=== PATIENT | male | born 1995 | race Caucasian/White ===

== ENCOUNTER 2022-10-02 19:23 | Emergency (ER) | payer MEDICAID, SELFPAY ==
[2022-10-02] VITALS (21 sets, daily range): BP systolic 107–148; BP diastolic 58–94; PULSE 88–144; RESP 9–24; TEMP 36.3; O2SAT 93–99; BMI 22.8
--- NOTE | 2022-10-02 19:50 | ECG_ITS ---
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
--- NOTE | 2022-10-02 19:50 | ED_ITS ---
HPI - General Adult General Chief complaint: Anxiety Stated complaint: Panic Attack Time Seen by Provider: 10/02/22 19:37 Source: patient Mode of arrival: walk-in History of Present Illness HPI narrative: This 27-year-old male to emergency Department for anxiety and restlessness after using methamphetamine and fentanyl actually 3 hours ago. He states he feels terrible. He has used these drugs in the past. He denies that he injects them intravenously but states he was snorting them and smoking them. Upon arrival he is very anxious, moving all over, cannnot calm down and stating that he feels terrible. He is not vomiting. He denies any chest pain or shortness of breath. Related Data Allergies Allergy/AdvReac Type Severity Reaction Status Date / Time No Known Drug Allergies Allergy Verified 10/02/22 19:42 Review of Systems ROS Status of ROS unobtainable due to medical condition (under the influence of methamphetamine and fentanyl) PFSH PFSH Social History Smoking status: Current every day smoker Exam Narrative Exam Narrative: Nurses note and vital signs reviewed and patient is not hypoxic. General: The patient appears Anxious with psychomotor agitation and nonstop movement of his lower extremities, no respiratory distress, GCS 15. Skin: Warm, dry, no pallor noted. There is no rash noted. Head: Normocephalic, atraumatic Eye: Conjunctiva are injected, patient is tearful, no scleral icterus noted Ears, Nose, Mouth, and Throat: oral mucosa is moist. Nares patent. Mouth without vesicles. Ear canals patent. Tm's without Erythema Cardiovascular: Regular Rate and Rhythm, tachycardia with pulse in the 130- 140s Respiratory: Patient is in no distress, no accessory muscle use, lungs are clear to auscultation, no wheezing, rales or rhonchi Back: non-tender, no CVA tenderness bilaterally to percussion. GI: Normal bowel sounds, no tenderness to palpation, no masses appreciated. No rebound, guarding, or rigidity noted. Musculoskeletal: The patient has no evidence of calf tenderness, no pitting edema, symmetrical pulses noted bilaterally Neurological: A&O x4, normal speech Psychiatric: agitated, anxious, tearful Constitutional Vital Signs, click to edit/add: Last Vital Signs Temp 97.3 F L 10/02/22 19:38 Pulse 87 10/03/22 05:30 Resp 14 10/03/22 05:30 BP 118/78 10/03/22 05:30 Pulse Ox 97 10/03/22 05:30 O2 Del Method Room Air 10/02/22 19:38 Course Vital Signs Vital signs: Vital Signs Temperature 97.3 F L 10/02/22 19:38 Pulse Rate 144 H 10/02/22 19:38 Respiratory Rate 22 10/02/22 19:38 Blood Pressure 134/87 H 10/02/22 19:38 Pulse Oximetry 94 L 10/02/22 19:38 Oxygen Delivery Method Room Air 10/02/22 19:38 Temperature 97.3 F L 10/02/22 19:38 Pulse Rate 87 10/03/22 05:30 Respiratory Rate 14 10/03/22 05:30 Blood Pressure 118/78 10/03/22 05:30 Pulse Oximetry 97 10/03/22 05:30 Oxygen Delivery Method Room Air 10/02/22 19:38 Medical Decision Making MDM Narrative Medical decision making narrative: 27-year-old male with a history of substance abuse who has been in and out of rehab and sober living environment is presents for evaluation after he intentionally snorted and smoked methamphetamine and fentanyl. He has been on Suboxone in the past. He presents stating that he is scared and feels terrible. He allegedly took the medications approximately 3 hoours prior to arrival. I had a lengthy discussion with his mother who states that she thinks that he is relapsing because he is currently staying with his father who is dying of cancer. She wishes that when he gets discharged he can be released with her. She did speak to his boss who is also his uncle and he had a normal day at work. His uncle dropped him off at the [facility] [employer] to get an ID. Allegedly somebody must have picked him up from the [facility] and gave him the drugs that he took. Upon arrival he was markedly tachycardic with pulse 130s. EKG was sinus tachycardia at 133 beats a minute. An IV was placed and he was medicated with IV fluids and 2 mg of IV Ativan. This relieved his agitation and he was able to rest and sleep. He has normal CBC with differential and normal comprehensive metabolic profile. 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 CT scan of the brain was performed due to his tachycardia followed by deep sedation and is negative for acute findings. The patient's mother requested to go home and be called to come pick him up when he is awake and stable for discharge. The patient was monitored overnight in room 6. He is not have any episodes of desaturation, tachycardia or hypotension. He is now easily arousable and is drinking fluids and having a light snack. His mother called and he will be discharged home when she arrives. Lab Data Labs: Lab Results 10/02/22 Range/Units 19:31 WBC 9.5 (4.0-11.0) 10^3/uL RBC 4.68 L (4.70-6.10) 10^6/uL Hgb 13.7 L (14.0-18.0) g/dL Hct 40.3 L (42.0-54.0) % MCV 86.1 (80.0-94.0) fL MCH 29.3 (25.9-34.0) pg MCHC 34.0 (29.9-35.2) g/dL RDW 12.0 (11.0-15.0) % Plt Count 430 (150-450) 10^3/uL MPV 9.0 L (9.5-13.5) fL Neut % (Auto) 55.9 (43.0-75.0) % Lymph % (Auto) 33.6 (20.5-60.0) % [place] % (Auto) 6.8 (1.7-12.0) % Eos % (Auto) 2.8 (0.9-7.0) % Baso % (Auto) 0.7 (0.2-2.0) % Neut # (Auto) 5.3 (1.4-6.5) 10^3/uL Lymph # (Auto) 3.2 (1.2-3.8) 10^3/uL [place] # (Auto) 0.6 (0.3-0.8) 10^3/uL Eos # (Auto) 0.3 (0.0-0.7) 10^3/uL Baso # (Auto) 0.1 (0.0-0.1) 10^3/uL Abs Immat Gran (auto) 0.02 (0.00-0.03) 10^3/uL Imm/Tot Granulo (auto) 0.2 (0.0-0.5) % Sodium 138 (136-145) mmol/L Potassium 3.8 (3.5-5.1) mmol/L Chloride 102 (98-107) mmol/L Carbon Dioxide 27.0 (21.0-32.0) mmol/L Anion Gap 12.8 BUN 13.0 (7.0-18.0) mg/dL Creatinine 0.92 (0.70-1.30) mg/dL Est GFR ( Amer) >60 (>=60) Est GFR (Non-Af Amer) >60 (>=60) BUN/Creatinine Ratio 14.1 Glucose 131 H (74-106) mg/dL Calcium 8.9 (8.5-10.1) mg/dL Total Bilirubin 0.1 L (0.2-1.0) mg/dL AST 24 (15-37) U/L ALT 37 (16-63) U/L Alkaline Phosphatase 110 (46-116) U/L Total Protein 7.5 (6.4-8.2) g/dL Albumin 3.7 (3.4-5.0) g/dL Globulin 3.8 g/dL Albumin/Globulin Ratio 1.0 ECG Data Attestation: I personally reviewed and interpreted this ECG as follows: (Sinus tachycardia at 132 beats for minute, right axis deviation, nonspecific ST changes, no acute ST segment elevation or T-wave inversion) Discharge Plan Discharge Chief Complaint: Anxiety Clinical Impression: Active substance abuse Patient Disposition: Home, Self-Care Time of Disposition Decision: 06:03 Condition: Good Instructions: Polysubstance Use Disorder (ED) Stand Alone Forms: Portal Instructions Referrals: Corby Tolentino MD [Primary Care Provider] - 1 week
[2022-10-02] MEDS: 0.9 % SODIUM CHLORIDE 1,000 ML 999 ML IV (19:56)
[2022-10-02] MEDS: LORAZEPAM 2 MG/ML 1 ML VIAL IV (19:56)
[2022-10-02] MEDS: ONDANSETRON PF 4 MG/2 ML VIAL IV (19:57)
[2022-10-02 20:03] LABS: Basophils Absolute Auto 0.1 10^3/uL (0.0-0.1); Basophils Percent Auto 0.7 % (0.2-2.0); Eosinophils Absolute Auto 0.3 10^3/uL (0.0-0.7); Eosinophils Percent Auto 2.8 % (0.9-7.0); Hematocrit 40.3 % (42.0-54.0); Hemoglobin 13.7 g/dL (14.0-18.0); Immature Granulocytes Abs Auto 0.02 10^3/uL (0.00-0.03); Immature Granulocytes Pct Auto 0.2 % (0.0-0.5); Lymphocytes Absolute Auto 3.2 10^3/uL (1.2-3.8); Lymphocytes Percent Auto 33.6 % (20.5-60.0); Mean Corpuscular Hemoglobin 29.3 pg (25.9-34.0); Mean Corpuscular Volume 86.1 fL (80.0-94.0); Monocytes Absolute Auto 0.6 10^3/uL (0.3-0.8); Monocytes Percent Auto 6.8 % (1.7-12.0); Neutrophils Absolute Auto 5.3 10^3/uL (1.4-6.5); Neutrophils Percent Auto 55.9 % (43.0-75.0); Platelet Count 430 10^3/uL (150-450); Red Blood Count 4.68 10^6/uL (4.70-6.10); White Blood Count 9.5 10^3/uL (4.0-11.0)
[2022-10-02 20:20] LABS: Alanine Aminotransferase 37 U/L (16-63); Albumin Level 3.7 g/dL (3.4-5.0); Alkaline Phosphatase 110 U/L (46-116); Anion Gap 12.8; Aspartate Amino Transferase 24 U/L (15-37); BUN Creatinine Ratio 14.1; Bilirubin Total 0.1 mg/dL (0.2-1.0); Calcium 8.9 mg/dL (8.5-10.1); Chloride 102 mmol/L (98-107); Estimated GFR (African America >60 (>=60); Estimated GFR (Non-African Ame >60 (>=60); Globulin 3.8 g/dL; Glucose 131 mg/dL (74-106); Potassium 3.8 mmol/L (3.5-5.1); Sodium 138 mmol/L (136-145); Total Protein 7.5 g/dL (6.4-8.2)
--- NOTE | 2022-10-02 23:04 | CT_ITS ---
The [address] [address] Patient Name: AMAURY CANDELARIO MRN: [id number] date: 1995 Sex: M Assigned Patient Location: ER Current Patient Location: ER Accession/Order Number: [id number] Exam Date: 10/02/2022 23:10 Report Date: 10/02/2022 23:28 At the request of: BELEN MARKER Procedure: CT head/brain wo con EXAMINATION: CT head/brain wo con, 10/02/2022 11:10 PM EDT HISTORY: AMS COMPARISON: CT head 06/14/2021. TECHNIQUE: CT scan of the head was performed without IV contrast. CT dose reduction technique was used, including Automated Exposure Control. FINDINGS: BRAIN PARENCHYMA/CSF SPACES: Ventricles are normal in size for age. There is no hemorrhage, mass effect or midline shift. There are no other significant findings. PARANASAL SINUSES: Clear. SKULL BASE AND CALVARIUM: Normal. EXTRACRANIAL SOFT TISSUES: Normal. CT/CT head/brain wo con IMPRESSION: Normal noncontrast head CT. Electronically authenticated by: JAIME MAHMOOD Date: 10/02/2022 23:28
[2022-10-03] VITALS (13 sets, daily range): BP systolic 99–124; BP diastolic 70–86; PULSE 81–98; RESP 8–17; O2SAT 96–100
== END 2022-10-03 06:38 | disposition home or self-care (01) ==
PROVIDERS: Emergency Provider Emergency Medicine; PCP Family Medicine
DX: F15.10 Other stimulant abuse, uncomplicated (principal); B37.9 Candidiasis, unspecified; F17.210 Nicotine dependence, cigarettes, uncomplicated
CPT/HCPCS: 36415; 70450; 80053; 84484; 85025; 93005; 96374; 96375; 99285

== ENCOUNTER 2022-12-06 23:39 | Emergency (ER) | payer MEDICAID, SELFPAY ==
[2022-12-06 23:43] VITALS: BP 102/60; PULSE 117; RESP 20; TEMP 36.2; O2SAT 97; BMI 23.1
--- NOTE | 2022-12-06 23:59 | PC.NURSE ---
patient states he has been trying to detox at home since saturday and is currently going through withdraw. states he last had alcohol on saturday and last used fentanyl on saturday. mother states he saw his PCP approx2 days ago and was prescribed medication but the medication does not seem to be helping enough. patient states he feels shaky, has restless legs, and is nauseous. states he just needs help getting through these symptoms. states he has been to a detox center previously but does not want to go to another center at this time, states he wants to continue trying to detox at home.
--- NOTE | 2022-12-07 00:03 | ECG_ITS ---
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
--- NOTE | 2022-12-07 00:03 | ED.GENADUL1 ---
HPI - General Adult General Chief complaint: Alcohol Stated complaint: detox day 4 Time Seen by Provider: 12/06/22 23:55 Source: patient and family (mother) History of Present Illness HPI narrative: This 27-year-old male with a history of substance abuse particularly heroin and fentanyl who has been attempting to detox at home for the past 2 days is brought to the emergency department by his mother for evaluation of restless legs, generalized malaise, nausea and diarrhea. He was seen recently by Shirley Ramírez and prescribed several medications to help him with his withdrawal symptoms. The patient states that he does occasionally drink alcohol but never typically has or than 3 beers. Upon arrival he is somnolent and difficult to examine. When I was able to stimulate him to sit up he started thrashing around with psychomotor movements of his arms and legs. He states that he cannot control his shaking. This immediately is followed by resting on the bed with no psychomotor agitation. He states that the last time he used any fentanyl was 3 days ago. He has been trying to detox at his girlfriends mothers house but went to his mother's house this evening and requested to be brought here. The mother states that he also uses methamphetamine. She thinks that he typically uses methamphetamine to the point that he cannot rest and then uses opiates to get him to sleep. He has been in detox centers before which have not seemed to help him. The mother states she thinks that they just sedate him the whole time is there and when he leaves he uses again. Related Data Home Medications Medication Instructions Recorded Confirmed dicyclomine 20 mg tablet 20 mg PO TID 12/06/22 12/06/22 pramipexole 0.5 mg tablet 0.5 mg PO DAILY 12/06/22 12/06/22 quetiapine 50 mg tablet 50 mg PO DAILY 12/06/22 12/06/22 tizanidine 4 mg tablet 4 mg PO BID PRN muscle spasticity 12/06/22 12/06/22 Allergies Allergy/AdvReac Type Severity Reaction Status Date / Time No Known Drug Allergies Allergy Verified 12/06/22 23:49 Review of Systems ROS Status of ROS 10 or more systems reviewed and unremarkable except as noted in history and below PFSH PFSH Social History Smoking status: Current every day smoker Exam Narrative Exam Narrative: Nurses note and vital signs reviewed; He is afebrile, tachycardic with a pulse of 117, blood pressure is moderately low 102/60, he is not hypoxic with pulse ox of 97 percent on room air General: Sleeping adult male lying on his right side, when stimulated he jumps up on the bed and starts shaking his legs simulating restless leg syndrome, he promptly then lays back down and is motionless Skin: Warm, dry, no pallor noted. There is no rash noted. Head: Normocephalic, atraumatic Eye: Normal conjunctiva, no drainage, EOMI. PERRL Ears, Nose, Mouth, and Throat: oral mucosa is moist. Pt is edentulous Cardiovascular: Regular Rate and Rhythm tachycardic at 117, no murmurs, rubs or gallops Respiratory: Patient is in no distress, no accessory muscle use, lungs are clear to auscultation, no wheezing, rales or rhonchi Back: non-tender, no CVA tenderness bilaterally to percussion. GI: Normal bowel sounds, no tenderness to palpation, no masses appreciated. No rebound, guarding, or rigidity noted. Musculoskeletal: Moving all extremities Neurological: A&O x4, normal speech, no focal neurologic deficits Psychiatric: somnolence followed by psychomotor agitation followed by somnolence, does not verbalize homicidal or suicidal ideation Constitutional Vital Signs, click to edit/add: Last Vital Signs Temp 97.1 F L 12/06/22 23:43 Pulse 117 H 12/06/22 23:43 Resp 16 12/07/22 02:23 BP 112/78 12/07/22 02:23 Pulse Ox 96 12/07/22 02:23 Course Vital Signs Vital signs: Vital Signs Temperature 97.1 F L 12/06/22 23:43 Pulse Rate 117 H 12/06/22 23:43 Respiratory Rate 20 12/06/22 23:43 Blood Pressure 102/60 12/06/22 23:43 Pulse Oximetry 97 12/06/22 23:43 Temperature 97.1 F L 12/06/22 23:43 Pulse Rate 117 H 12/06/22 23:43 Respiratory Rate 16 12/07/22 02:23 Blood Pressure 112/78 12/07/22 02:23 Pulse Oximetry 96 12/07/22 02:23 Medical Decision Making MDM Narrative Medical decision making narrative: This 27-year-old male is brought emergency department by his mother who is concerned about his health as he is going through opiate withdrawal. He is on several medications that were recently prescribed to help him with his withdrawal symptoms. He has been staying at his girlfriend's mother's house until today when he went to his mother's house and asked her to bring him here. He is intermittently sleeping and then having episodes of psychomotor agitation. He states that he has restless leg syndrome. He is on medications for this. He has had nausea and some diarrhea. He has not had any vomiting while in emergency department. He is not an alcohol user excessively but does occasionally drink some beers. His symptoms do not appear to be related to alcohol withdrawal. EKG done upon arrival sinus tachycardia 100 bpm with no acute changes. An IV was placed and routine labs are ordered. His labs are normal with the exception of a mildly low potassium which was replaced orally. He was medicated in the emergency department with normal saline, Zofran, 1 mg of Ativan. He is tolerating clear liquids. He was able to tolerate oral potassium replacement. On reevaluation he appeared to be feeling somewhat better but would awaken with acute agitation. His mother seems very concerned and I agreed to give him an additional dose of Ativan as well as D5 LR to clear any ketosis as he has not eaten in the past several days. He does appear to be doing better at this time and his mother is comfortable taking him home. I extended her that there is no quick fix for opiate withdrawal. He should continue the medications that he is currently on. I encouraged him to drink plenty of clear liquids. He is scheduled to get a The car easily beatl shot early next week. Lab Data Labs: Lab Results 12/07/22 Range/Units 00:12 WBC 7.8 (4.0-11.0) 10^3/uL RBC 4.22 L (4.70-6.10) 10^6/uL Hgb 12.4 L (14.0-18.0) g/dL Hct 35.9 L (42.0-54.0) % MCV 85.1 (80.0-94.0) fL MCH 29.4 (25.9-34.0) pg MCHC 34.5 (29.9-35.2) g/dL RDW 11.8 (11.0-15.0) % Plt Count 280 (150-450) 10^3/uL MPV 9.0 L (9.5-13.5) fL Neut % (Auto) 69.3 (43.0-75.0) % Lymph % (Auto) 23.8 (20.5-60.0) % [place] % (Auto) 5.7 (1.7-12.0) % Eos % (Auto) 0.8 L (0.9-7.0) % Baso % (Auto) 0.3 (0.2-2.0) % Neut # (Auto) 5.4 (1.4-6.5) 10^3/uL Lymph # (Auto) 1.9 (1.2-3.8) 10^3/uL [place] # (Auto) 0.5 (0.3-0.8) 10^3/uL Eos # (Auto) 0.1 (0.0-0.7) 10^3/uL Baso # (Auto) 0.0 (0.0-0.1) 10^3/uL Abs Immat Gran (auto) 0.01 (0.00-0.03) 10^3/uL Imm/Tot Granulo (auto) 0.1 (0.0-0.5) % Sodium 135 L (136-145) mmol/L Potassium 3.2 L (3.5-5.1) mmol/L Chloride 101 (98-107) mmol/L Carbon Dioxide 24.7 (21.0-32.0) mmol/L Anion Gap 12.5 BUN 10.0 (7.0-18.0) mg/dL Creatinine 0.76 (0.70-1.30) mg/dL Est GFR ( Amer) >60 (>=60) Est GFR (Non-Af Amer) >60 (>=60) BUN/Creatinine Ratio 13.2 Glucose 100 (74-106) mg/dL Calcium 8.5 (8.5-10.1) mg/dL Total Bilirubin 0.3 (0.2-1.0) mg/dL AST 12 L (15-37) U/L ALT 25 (16-63) U/L Alkaline Phosphatase 59 (46-116) U/L Total Protein 6.1 L (6.4-8.2) g/dL Albumin 3.2 L (3.4-5.0) g/dL Globulin 2.9 g/dL Albumin/Globulin Ratio 1.1 ECG Data Attestation: I personally reviewed and interpreted this ECG as follows: (Tennis tachycardia at 100 beats for minute, normal axis, Normal intervals,moderate right axis deviation, no acute ST segment elevation or T-wave inversion) Discharge Plan Discharge Chief Complaint: Alcohol Clinical Impression: Opiate withdrawal Patient Disposition: Home, Self-Care Time of Disposition Decision: 03:00 Condition: Fair Prescriptions / Home Meds: No Action tizanidine 4 mg tablet 4 mg PO BID PRN (Reason: muscle spasticity) quetiapine 50 mg tablet 50 mg PO DAILY Rx Instructions: 1-2 tablets at HS for insomnia pramipexole 0.5 mg tablet 0.5 mg PO DAILY Rx Instructions: 1-3 tablets at bed time for restless legs dicyclomine 20 mg tablet 20 mg PO TID Instructions: Opioid Withdrawal (ED), Narcotic Withdrawal (ED) Stand Alone Forms: Portal Instructions Referrals: Corby Tolentino MD [Primary Care Provider] - 1 week
[2022-12-07] MEDS: LORAZEPAM 2 MG/ML 1 ML VIAL 1 MG IV (00:19)
[2022-12-07] MEDS: ONDANSETRON PF 4 MG/2 ML VIAL IV (00:19)
[2022-12-07] MEDS: 0.9 % SODIUM CHLORIDE 1,000 ML 1000 ML IV (00:19)
[2022-12-07 00:26] LABS: Basophils Percent Auto 0.3 % (0.2-2.0); Eosinophils Absolute Auto 0.1 10^3/uL (0.0-0.7); Eosinophils Percent Auto 0.8 % (0.9-7.0); Hematocrit 35.9 % (42.0-54.0); Hemoglobin 12.4 g/dL (14.0-18.0); Immature Granulocytes Abs Auto 0.01 10^3/uL (0.00-0.03); Immature Granulocytes Pct Auto 0.1 % (0.0-0.5); Lymphocytes Absolute Auto 1.9 10^3/uL (1.2-3.8); Lymphocytes Percent Auto 23.8 % (20.5-60.0); Mean Corpuscular HGB Conc 34.5 g/dL (29.9-35.2); Mean Corpuscular Hemoglobin 29.4 pg (25.9-34.0); Mean Corpuscular Volume 85.1 fL (80.0-94.0); Monocytes Absolute Auto 0.5 10^3/uL (0.3-0.8); Monocytes Percent Auto 5.7 % (1.7-12.0); Neutrophils Absolute Auto 5.4 10^3/uL (1.4-6.5); Neutrophils Percent Auto 69.3 % (43.0-75.0); Platelet Count 280 10^3/uL (150-450); Red Blood Count 4.22 10^6/uL (4.70-6.10); Red Cell Distribution Width 11.8 % (11.0-15.0); White Blood Count 7.8 10^3/uL (4.0-11.0)
[2022-12-07 00:42] LABS: Alanine Aminotransferase 25 U/L (16-63); Albumin Globulin Ratio 1.1; Albumin Level 3.2 g/dL (3.4-5.0); Alkaline Phosphatase 59 U/L (46-116); Anion Gap 12.5; Aspartate Amino Transferase 12 U/L (15-37); BUN Creatinine Ratio 13.2; Bilirubin Total 0.3 mg/dL (0.2-1.0); Calcium 8.5 mg/dL (8.5-10.1); Carbon Dioxide 24.7 mmol/L (21.0-32.0); Chloride 101 mmol/L (98-107); Estimated GFR (African America >60 (>=60); Estimated GFR (Non-African Ame >60 (>=60); Globulin 2.9 g/dL; Glucose 100 mg/dL (74-106); Potassium 3.2 mmol/L (3.5-5.1); Sodium 135 mmol/L (136-145); Total Protein 6.1 g/dL (6.4-8.2)
[2022-12-07] MEDS: CLONIDINE HCL 0.1 MG TABLET PO (01:24)
[2022-12-07] MEDS: POTASSIUM CHLORIDE 10 MEQ ER TABLET 20 MEQ PO (01:24)
[2022-12-07] MEDS: LORAZEPAM 2 MG/ML 1 ML VIAL IV (02:17)
[2022-12-07 02:23] VITALS: BP 112/78; RESP 16; O2SAT 96
[2022-12-07 03:13] VITALS: O2SAT 98
== END 2022-12-07 03:15 | disposition home or self-care (01) ==
PROVIDERS: Emergency Provider Emergency Medicine; PCP Family Medicine
DX: F11.23 Opioid dependence with withdrawal (principal); F17.210 Nicotine dependence, cigarettes, uncomplicated; G25.81 Restless legs syndrome; Z79.899 Other long term (current) drug therapy
CPT/HCPCS: 36415; 80053; 85025; 93005; 96361; 96374; 96375; 96376; 99285

== ENCOUNTER 2022-12-08 00:44 | Emergency (ER) | payer MEDICAID, SELFPAY ==
[2022-12-08 00:48] VITALS: BP 136/89; PULSE 124; RESP 17; O2SAT 100
--- NOTE | 2022-12-08 00:50 | ECG_ITS ---
The [facility] Test Date: 2022-12-08 Pat Name: AMAURY CANDELARIO Department: Room: - Gender: Male Graduate Internship: : 1995 Requested By: [id number] Order Number: [id number] Reading MD: MEIR CALLOWAY Measurements Intervals [place] Rate: 104 P: 55 IN: 124 QRS: 101 QRSD: 86 T: 67 QT: 338 QTc: 399 Interpretive Statements 1120 Sinus tachycardia 7100 Abnormal right axis deviation 9140 abnormal rhythm ECG Compared to ECG 12/06/2022 23:51:50 T-wave abnormality no longer present Ventricular premature complex(es) no longer present Electronically Signed On 12-10-2022 7:16:51 EDT by MEIR CALLOWAY
--- NOTE | 2022-12-08 01:19 | ED.GENADUL1 ---
HPI - General Adult General Chief complaint: Dizziness Stated complaint: dizzy Time Seen by Provider: 12/08/22 00:53 Source: patient Mode of arrival: walk-in Limitations: no limitations History of Present Illness HPI narrative: patient has history of polysubstance abuse. Fentanyl, xanax etc. Was seen and started on treatment for withdrawal including Mirapex, zanaflex, bentyl and seroquel. Tonight his sister was concerned about his shakes and body movements. He states he feels light headed. No vomiting. He states he took one xanax yesterday. States he had saved some xanax pills to help him deal with withdrawal if he needed them. Does not take xanax regularly Last use of drugs , other than xanax was 4 days ago Related Data Home Medications Medication Instructions Recorded Confirmed dicyclomine 20 mg tablet 20 mg PO TID 12/06/22 12/06/22 pramipexole 0.5 mg tablet 0.5 mg PO DAILY 12/06/22 12/06/22 quetiapine 50 mg tablet 50 mg PO DAILY 12/06/22 12/06/22 tizanidine 4 mg tablet 4 mg PO BID PRN muscle spasticity 12/06/22 12/06/22 Allergies Allergy/AdvReac Type Severity Reaction Status Date / Time No Known Drug Allergies Allergy Verified 12/06/22 23:49 Review of Systems ROS Status of ROS 10 or more systems reviewed and unremarkable except as noted in history and below [facility] Social History Smoking status: Current every day smoker Exam Constitutional Vital Signs, click to edit/add: Last Vital Signs Pulse 124 H 12/08/22 00:48 Resp 17 12/08/22 00:48 BP 136/89 12/08/22 00:48 Pulse Ox 100 12/08/22 00:48 O2 Del Method Room Air 12/08/22 00:48 Common normals: average body habitus, oriented x3 and alert Other: rocking back and forth but not in discomfort Eye Common normals: EOMs intact bilaterally and conjunctivae normal Respiratory Common normals: normal respiratory effort and no retractions Cardio Rate: tachycardic GI Common normals: Normal to inspection, nondistended, normoactive bowel sounds present and soft to palpation Extremity Common normals: normal to inspection and full ROM Neuro Common normals: oriented x3, CN's II-XII intact bilaterally, moves all extremities and no focal motor deficits Psych Appearance: grossly normal Course Vital Signs Vital signs: Vital Signs Pulse Rate 124 H 12/08/22 00:48 Respiratory Rate 17 12/08/22 00:48 Blood Pressure 136/89 12/08/22 00:48 Pulse Oximetry 100 12/08/22 00:48 Oxygen Delivery Method Room Air 12/08/22 00:48 Pulse Rate 124 H 12/08/22 00:48 Respiratory Rate 17 12/08/22 00:48 Blood Pressure 136/89 12/08/22 00:48 Pulse Oximetry 100 12/08/22 00:48 Oxygen Delivery Method Room Air 12/08/22 00:48 Medical Decision Making MDM Narrative Medical decision making narrative: patient presents with mild withdrawal symptoms. Restless and not able to sit stil . occ jerks. AxOx4 cooperative. His sister was concern he was withdrawing from Xanax and that it could get worse. He informed of both that he only took one xanax yesterday and does not take them regularly. Patient and sister informed he should not experience withdrawal from one xanax pill. He does have withdrawal symptoms from his opiates . Clinically he does look stable but is tachy and advised to increase fluid intake Discharge Plan Discharge Chief Complaint: Dizziness Clinical Impression: Opiate withdrawal Patient Disposition: Home, Self-Care Prescriptions / Home Meds: No Action tizanidine 4 mg tablet 4 mg PO BID PRN (Reason: muscle spasticity) quetiapine 50 mg tablet 50 mg PO DAILY Rx Instructions: 1-2 tablets at HS for insomnia pramipexole 0.5 mg tablet 0.5 mg PO DAILY Rx Instructions: 1-3 tablets at bed time for restless legs dicyclomine 20 mg tablet 20 mg PO TID Instructions: Opioid Withdrawal (ED) Stand Alone Forms: Portal Instructions Referrals: Corby Tolentino MD [Primary Care Provider] - 1 week
[2022-12-08 01:34] VITALS: PULSE 122; O2SAT 100
== END 2022-12-08 01:38 | disposition home or self-care (01) ==
PROVIDERS: Emergency Provider Internal Medicine; PCP Family Medicine
DX: F11.23 Opioid dependence with withdrawal (principal); Z79.899 Other long term (current) drug therapy; F17.210 Nicotine dependence, cigarettes, uncomplicated
CPT/HCPCS: 93005; 99283